=== PATIENT | female | born 1990 | race Caucasian/White ===

== ENCOUNTER 2018-10-16 08:49 | Emergency (ER) | payer MEDICAID ==
[~2018-10-16] VITALS: Ht 162.6 cm; Wt 77.1 kg
[2018-10-16 08:55] VITALS: BP_SYST 131
--- NOTE | 2018-10-16 09:00 | NUR ---
Pt placed in bed 8
--- NOTE | 2018-10-16 09:05 | NUR ---
SHANE Fuentes at bedside examining patient.
--- NOTE | 2018-10-16 09:10 | NUR ---
Aroldo is awake, alert, and oriented x4. She is complaining of pain from her right hip radiating down to below her right knee. Patient reports a medical history of sciatica and GERD.
[2018-10-16 09:19] VITALS: BP_SYST 131
--- NOTE | 2018-10-16 09:19 | NUR ---
Patient given written and verbal discharge instructions and verbalizes understanding. ER MD discussed with patient the results and treatment provided. Patient in stable condition. ID arm band removed. IV catheter removed intact and dressing applied, no active bleeding. Rx of tramadol given. Patient educated on pain management and to follow up with PMD. Pain Scale 8/10, Dr. Ignacio is aware, prescription was given. Opportunity for questions provided and answered. Medication side effect fact sheet provided.
== END 2018-10-16 09:19 | disposition home or self-care (01) ==
LOC: SED 08:49
DX: M54.30 Sciatica, unspecified side (principal)
CPT/HCPCS: 81025; 99283

== ENCOUNTER 2018-11-06 18:56 | Emergency (ER) | payer MEDICAID ==
[~2018-11-06] VITALS: Ht 162.6 cm; Wt 77.1 kg
--- NOTE | 2018-11-06 19:00 | NUR ---
Patient to ER chair 1 to gown for evaluation. Side rails up. Report given from TEX Foreman.
--- NOTE | 2018-11-06 19:15 | NUR ---
ER ANURAG Ignacio at bedside examining patient.
--- NOTE | 2018-11-06 19:30 | NUR ---
Pt came to the ED for aching and sharp pain to the right buttocks radiating to her R knee. Pt says that she has taken motrin but it can cause stomach pain. She states that her doctor has prescribed Tramadol and Robaxin with minimal relief. Pt says pain gets aggravated when sitting for long periods of time. Denies n/v/d or fever. No other complaints/injuries noted. Will cont. to monitor.
[2018-11-06 19:34] VITALS: BP_SYST 144
[2018-11-06 20:03] VITALS: BP_SYST 144
--- NOTE | 2018-11-06 20:03 | NUR ---
Patient given written and verbal discharge instructions and verbalizes understanding. ER MD COMMUNICATIONS ADVISOR Estrella Ignacio discussed with patient the results and treatment provided. Patient in stable condition. ID arm band removed. Rx of predisone and tramadol given. Patient educated on pain management and to follow up with PMD within 2-3 days. Pain Scale 0/10. Opportunity for questions provided and answered. Medication side effect fact sheet provided.
--- NOTE | 2018-11-06 20:04 | NUR ---
Note undone in EDM - 11/07/18 at 0303 by [email or web address] Pt came to the ED for aching and sharp pain to the right buttocks radiating to her R knee. Pt says that she has taken motrin but it can cause stomach pain. She states that her doctor has prescribed Tramadol and Robaxin with minimal relief. Pt says pain gets aggravated when sitting for long periods of time. Denies n/v/d or fever. No other complaints/injuries noted. Will cont. to monitor.
== END 2018-11-06 20:03 | disposition home or self-care (01) ==
LOC: SED 18:56
DX: M54.31 Sciatica, right side (principal); R03.0 Elevated blood-pressure reading, without diagnosis of hypertension; Z90.49 Acquired absence of other specified parts of digestive tract; Z98.51 Tubal ligation status
CPT/HCPCS: 99283